=== PATIENT | female | born 1995 | race Caucasian/White ===

== ENCOUNTER 2024-03-12 01:50 | Emergency (ER) | payer OTHER ==
[~2024-03-12] VITALS: Ht 162.6 cm; Wt 68.2 kg
[2024-03-12] MEDS: diazePAM 10MG/2ML SYRINGE IV ONE (02:51)
[2024-03-12] MEDS ORDERED: ACETAMINOPHEN TAB 650MG DOSE (2X325MG) PO ONE (03:10)
[2024-03-12] MEDS ORDERED: ONDANSETRON 4MG 2ML VIAL As Ordered ONE (03:52)
[2024-03-12] MEDS ORDERED: MORPHINE 4 MG/ML 1ML VIAL As Ordered ONE (03:53)
[2024-03-12] MEDS: ONDANSETRON 4MG 2ML VIAL IV ONE (03:55)
[2024-03-12] MEDS: MORPHINE 4 MG/ML 1ML VIAL IV ONE ×2 (03:55→12:08)
[2024-03-12] MEDS: methylPREDNISolone 125MG 2ML VIAL IV ONE (04:53)
[2024-03-12] MEDS: carisoprodoL 350 MG TAB PO ONE (07:11)
[2024-03-12 07:12] VITALS: TEMP 99
[2024-03-12] MEDS ORDERED: SOMA350T PO (11:10)
[2024-03-12] MEDS ORDERED: IBUP-1022 PO (11:12)
[2024-03-12] MEDS: NS 500 ML IV ONE (12:08)
[2024-03-12] MEDS ORDERED: PERC5TAB12 PO (14:01)
[2024-03-12 14:45] VITALS: BP 101/60
[2024-03-12 14:49] VITALS: O2SAT 98
[2024-03-12] MEDS: PERCOCET 5MG/325MG TAB PO ONE (14:49)
[2024-03-12] MEDS: IBUPROFEN 600MG TAB PO ONE (14:49)
[2024-03-12] MEDS: ACETAMINOPHEN 325 MG TAB PO ONE (14:51)
== END 2024-03-12 15:00 | disposition left against medical advice (07) ==
LOC: M ED 01:50 → EDBD 01:50 → M ED 15:00
DX: M51.26 Other intervertebral disc displacement, lumbar region (principal); Z53.9 Procedure and treatment not carried out, unspecified reason
CPT/HCPCS: 72131; 72148; 72192; 96361; 96374; 96375; 96376; 99284; J2405; J2919; J3360